=== PATIENT | male | born 1980 | race African-American/Black ===

== ENCOUNTER 2017-06-26 20:56 | Observation (INO) | payer SELFPAY ==
[~2017-06-26] VITALS: Ht 167.6 cm; Wt 70.0 kg
[2017-06-26 21:02] VITALS: BP 117/59; PULSE 91; RESP 18; TEMP 98.5; O2SAT 97
[2017-06-26 21:10] VITALS: RESP 18; O2SAT 97
--- NOTE | 2017-06-26 21:11 | PD ---
HPI Chief Complaint: Pain: Acute or Chronic Time Seen by Provider: 21:06 Travel History International Travel<30 days: No Contact w/Intl Traveler<30days: No Traveled to known affect area: No History of Present Illness HPI 36-year-old male with history of IV drug use, crack cocaine use, multiple substance abuse, states that he had overdosed about 2 weeks ago and had been given medication for overdose but refused to come to the ER, states that since then he has been having chest pains which are right sided going down his right arm, but also radiates to the rest of his chest. He states is currently a 10 out of 10 and is intermittent in nature. He states it gets worse when he lays down. He denies any shortness of breath or any other issues. Modifying Factors: Worse with laying down Associated Signs & Symptoms: Intermittent chest pains Risk Factors: Crack use PFSH Past Medical History Hx Anticoagulant Therapy: No Asthma: Yes (WHEEZING) Blood Disorders: No Bipolar Disorder: Yes Anxiety: Yes Depression: Yes Cancer: No Cardiovascular Problems: No Chemotherapy: No Cerebrovascular Accident: No Diabetes: No Diminished Hearing: No Endocrine: No Gastrointestinal Disorders: No Genitourinary: No Immune Disorder: No Implanted Vascular Access Dvce: No Musculoskeletal: Yes (BROKEN JAW) Neurologic: No Psychiatric: Yes (SUICIDAL ATTEMPTS) Reproductive: No Respiratory: No Influenza Vaccination: No Past Surgical History Other Surgery: No Social History Alcohol Use: No (DENIES) Tobacco Use: Yes (1 PPD) Substance Use: Yes (CRACK) Allergies-Medications (Allergen,Severity, Reaction): Coded Allergies: *MDRO Multi-Drug Resistant Organism (Verified Adverse Reaction, Unknown, ) MRSA chest wound 06/02/15. MRSA PCR Positive 08/21/15. Reported Meds & Prescriptions Reported Meds & Active Scripts Active No Active Prescriptions or Reported Medications Review of Systems Except as stated in HPI: all other systems reviewed are Neg Physical Exam Narrative GENERAL: Well-developed middle age male patient who is currently in moderate distress at awake and oriented 3. SKIN: Focused skin assessment warm/diaphoretic. HEAD: Atraumatic. Normocephalic. EYES: Pupils equal and round. No scleral icterus. No injection or drainage. ENT: No nasal bleeding or discharge. Mucous membranes pink and moist. NECK: Trachea midline. No JVD. CARDIOVASCULAR: Regular rate and rhythm. No murmur appreciated. Pulses are present and equal bilaterally. RESPIRATORY: No accessory muscle use. Clear to auscultation. Breath sounds equal bilaterally. GASTROINTESTINAL: Abdomen soft, non-tender, nondistended. Hepatic and splenic margins not palpable. MUSCULOSKELETAL: No obvious deformities. No clubbing. No cyanosis. No edema. NEUROLOGICAL: Awake and alert. No obvious cranial nerve deficits. Motor grossly within normal limits. Normal speech. PSYCHIATRIC: Appropriate mood and affect; insight and judgment normal. Data Data Last Documented VS Vital Signs Date Time Temp Pulse Resp B/P Pulse Ox O2 Delivery O2 Flow Rate FiO2 06/26/17 21:16 84 18 115/57 98 Room Air 104/55 06/26/17 21:02 98.5 Orders Electrocardiogram (06/26/17 21:06) Ckmb (Isoenzyme) Profile (06/26/17 21:06) Complete Blood Count With Diff (06/26/17 21:06) Comprehensive Metabolic Panel (06/26/17 21:06) Magnesium (Mg) (06/26/17 21:06) Prothrombin Time / Inr (Pt) (06/26/17 21:06) Act Partial Throm Time (Ptt) (06/26/17 21:06) Troponin I (06/26/17 21:06) Chest, Single Ap (06/26/17 21:06) Ecg Monitoring (06/26/17 21:06) Bilateral Bp Monitoring (06/26/17 21:06) Iv Access Insert/Monitor (06/26/17 21:06) Oximetry (06/26/17 21:06) Oxygen Administration (06/26/17 21:06) Sodium Chloride 0.9% Flush (Ns Flush) (06/26/17 21:15) CKMB (06/26/17 21:10) CKMB% (06/26/17 21:10) Activity Bed Rest With Brp (06/26/17 22:31) Vital Signs (Adult) Q4H (06/26/17 22:31) Cardiac Rhythm .As Directed (06/26/17 22:31) Notify Dr: Other .PRN (06/26/17 22:31) Notify DrAundrea Parameters (06/26/17 22:31) Resp Oxygen Nasal Cannula (06/26/17 ) Ckmb (Isoenzyme) Profile (06/26/17 22:31) Ckmb (Isoenzyme) Profile (06/27/17 01:31) Troponin I (06/26/17 22:31) Troponin I (06/27/17 01:31) Electrocardiogram (06/26/17 22:31) Electrocardiogram (06/27/17 01:31) ^ Obtain (06/26/17 22:31) Sodium Chloride 0.9% Flush (Ns Flush) (06/26/17 22:45) Sodium Chloride 0.9% Flush (Ns Flush) (06/27/17 09:00) Aspirin (Aspirin) (06/27/17 09:00) Dust Puller / Telemetry LEEANN.Q8H (06/26/17 22:31) Admit Order (Ed Use Only) (06/26/17 22:31) Labs Laboratory Tests Test 06/26/17 21:10 White Blood Count 7.4 TH/MM3 Red Blood Count 4.66 MIL/MM3 Hemoglobin 13.4 GM/DL Hematocrit 39.5 % Mean Corpuscular Volume 84.7 FL Mean Corpuscular Hemoglobin 28.8 PG Mean Corpuscular Hemoglobin 34.0 % Concent Red Cell Distribution Width 13.8 % Platelet Count 292 TH/MM3 Mean Platelet Volume 7.5 FL Neutrophils (%) (Auto) 45.5 % Lymphocytes (%) (Auto) 36.3 % Monocytes (%) (Auto) 13.6 % Eosinophils (%) (Auto) 4.1 % Basophils (%) (Auto) 0.5 % Neutrophils # (Auto) 3.4 TH/MM3 Lymphocytes # (Auto) 2.7 TH/MM3 Monocytes # (Auto) 1.0 TH/MM3 Eosinophils # (Auto) 0.3 TH/MM3 Basophils # (Auto) 0.0 TH/MM3 CBC Comment DIFF FINAL Differential Comment Prothrombin Time 11.0 SEC Prothromb Time International 1.0 RATIO Ratio Activated Partial 24.5 SEC Thromboplast Time Sodium Level 141 MEQ/L Potassium Level 3.4 MEQ/L Chloride Level 107 MEQ/L Carbon Dioxide Level 24.2 MEQ/L Anion Gap 10 MEQ/L Blood Urea Nitrogen 31 MG/DL Creatinine 1.35 MG/DL Estimat Glomerular Filtration 72 ML/MIN Rate Random Glucose 175 MG/DL Calcium Level 8.2 MG/DL Magnesium Level 2.1 MG/DL Total Bilirubin 0.2 MG/DL Aspartate Amino Transf 12 U/L (AST/SGOT) Alanine Aminotransferase 17 U/L (ALT/SGPT) Alkaline Phosphatase 72 U/L Total Creatine Kinase 110 U/L Creatine Kinase MB 1.0 NG/ML Troponin I LESS THAN 0.02 NG/ML Total Protein 6.4 GM/DL Albumin 3.5 GM/DL MDM Medical Decision Making Medical Screen Exam Complete: Yes Emergency Medical Condition: Yes Medical Record Reviewed: Yes Interpretation(s) EKG shows normal sinus rhythm at a rate of 90 bpm with no signs of acute ST-T changes. Laboratory Tests Test 06/26/17 21:10 Monocytes (%) (Auto) 13.6 % (0.0-8.0) Eosinophils (%) (Auto) 4.1 % (0.0-4.0) Monocytes # (Auto) 1.0 TH/MM3 (0-0.9) Potassium Level 3.4 MEQ/L (3.5-5.1) Blood Urea Nitrogen 31 MG/DL (7-18) Creatinine 1.35 MG/DL (0.60-1.30) Estimat Glomerular Filtration 72 ML/MIN (>89) Rate Random Glucose 175 MG/DL (74-106) Calcium Level 8.2 MG/DL (8.5-10.1) Aspartate Amino Transf 12 U/L (15-37) (AST/SGOT) Troponin I LESS THAN 0.02 NG/ML (0.02-0.05) Last 24 hours Impressions Chest X-Ray 06/26/17 2106 Signed Impressions: Service Date/Time: Monday, June 26, 2017 21:10 - CONCLUSION: No acute disease. Pierre Green MD Differential Diagnosis Intermittent chest painsdysrhythmias versus vasospasm/cocaine related versus ACS versus anxiety attack Narrative Course Lab work and EKG did not show any signs of acute processes. At this point, I plan would be to admit the patient to chest pain center for further evaluation for chest pains. Diagnosis Primary Impression: Atypical chest pain Admitting Information Admitting Physician Requests: Admit Scripts No Active Prescriptions or Reported Meds Leo Alonzo MD Jun 26, 2017 21:11
[2017-06-26] MEDS ORDERED: SODIUM CHLORIDE 0.9% FLUSH 10 ML FLUSH IVF PRN (21:15)
[2017-06-26 21:16] VITALS: BP_SYST 104; BP_SYST 115; BP_DIAS 55; BP_DIAS 57; PULSE 84; RESP 18; O2SAT 98
[2017-06-26 21:53] LABS: AUTOMATED NEUTROPHIL # 3.4 TH/MM3 (1.8-7.7); BASOPHIL % 0.5 % (0.0-2.0); EOSINOPHIL # 0.3 TH/MM3 (0-0.4); EOSINOPHIL % 4.1 % (0.0-4.0); HEMATOCRIT 39.5 % (39.0-51.0); HEMO FLAGS DIFF FINAL; LYMPH % 36.3 % (9.0-44.0); LYMPHOCYTE # 2.7 TH/MM3 (1.0-4.8); MEAN CELL VOLUME 84.7 FL (80.0-100.0); MEAN CORPUSCULAR HEMOGLOBIN 28.8 PG (27.0-34.0); MONO % 13.6 % (0.0-8.0); NEUT % 45.5 % (16.0-70.0); PLATELET COUNT 292 TH/MM3 (150-450); RED BLOOD COUNT 4.66 MIL/MM3 (4.50-5.90); RED CELL DISTRIBUTION WIDTH 13.8 % (11.6-17.2); WHITE BLOOD COUNT 7.4 TH/MM3 (4.0-11.0)
[2017-06-26 21:59] LABS: APTT (PATIENT) 24.5 SEC (24.3-30.1)
--- NOTE | 2017-06-26 22:02 | RADRPT ---
EXAM DATE/TIME: 06/26/2017 21:10 [facility] COMPARISON: CHEST SINGLE AP, August 19, 2015, 11:06. INDICATIONS : Chest pain. MEDICAL HISTORY : Asthma. SURGICAL HISTORY : Jaw surgery. ENCOUNTER: Initial ACUITY: 1 day PAIN SCORE: 10/10 LOCATION: Bilateral chest FINDINGS: A single view of the chest demonstrates the lungs to be symmetrically aerated without evidence of mas s, infiltrate or effusion. The cardiomediastinal contours are unremarkable. Osseous structures are intact. CONCLUSION: No acute disease. Pierre Green MD on June 26, 2017 at 22:00 Board Certified Radiologist. This report was verified electronically.
[2017-06-26 22:08] LABS: ANION GAP 10 MEQ/L (5-15); AST (GOT) 12 U/L (15-37); BICARBONATE 24.2 MEQ/L (21.0-32.0); BLOOD UREA NITROGEN 31 MG/DL (7-18); CHLORIDE 107 MEQ/L (98-107); GLOMERULAR FILTRATION RATE 72 ML/MIN (>89); MAGNESIUM 2.1 MG/DL (1.5-2.5); POTASSIUM 3.4 MEQ/L (3.5-5.1); SODIUM (NA) 141 MEQ/L (136-145)
[2017-06-26 22:09] LABS: ALT (GPT) 17 U/L (12-78)
[2017-06-26 22:13] LABS: ALKALINE PHOSPHATASE 72 U/L (45-117); CREATINE KINASE 110 U/L (39-308); TOTAL BILIRUBIN ADULT 0.2 MG/DL (0.2-1.0)
[2017-06-26] MEDS ORDERED: SODIUM CHLORID 0.9% 500 ML INJ 500 ML IV ONE (22:45)
[2017-06-26] MEDS ORDERED: SODIUM CHLORIDE 0.9% FLUSH 10 ML FLUSH IV FLUSH PRN (22:45)
[2017-06-26] MEDS ORDERED: IOHEXOL 350 MG/ML 10 ML VIAL (for RAD DIAG) IV ONE (23:30)
[2017-06-26 23:41] VITALS: O2SAT 95
--- NOTE | 2017-06-26 23:41 | RADRPT ---
EXAM DATE/TIME: 06/26/2017 22:44 [facility] COMPARISON: No previous studies available for comparison. INDICATIONS : Chest pain. IV CONTRAST: 100 cc Omnipaque 350 (iohexol) IV RADIATION DOSE: 19.47 CTDIvol (mGy) MEDICAL HISTORY : None SURGICAL HISTORY : None. ENCOUNTER: Initial ACUITY: 1 day PAIN SCALE: 8/10 LOCATION: chest TECHNIQUE: Volumetric scanning was performed using a multi-row detector CT scanner. The data was post processed with a variety of visualization algorithms including full volume maximum intensity projection, multi -planar sliding thin slab reformation, curved planar reformation, and surface rendering techniques. Using automated exposure control and adjustment of the mA and/or kV according to patient size, radiat ion dose was kept as low as reasonably achievable to obtain optimal diagnostic quality images. DICOM format image data is available electronically for review and comparison. FINDINGS: LUNGS: There is no consolidation or pneumothorax. No concerning pulmonary nodule is visualized. No pleural fluid is present. MEDIASTINUM: No abnormally enlarged lymph nodes by CT criteria. No axillary or hilar abnormalities are identified. ABDOMEN: The liver and spleen are free of focal defects. The gallbladder and pancreas demonstrate no abnormali ty. The adrenal glands are normal. The kidneys demonstrate no evidence of solid renal mass or hydrone phrosis. No free fluid or abdominal masses are identified. No para-aortic adenopathy is seen. PELVIS: No evidence of free fluid or pelvic mass. No abnormally enlarged inguinal or retroperitoneal lymph no chester are present. The bladder is unremarkable. THORACIC AORTA: The thoracic aortic root is normal with normal branching of the great vessels. There is no evidence of aneurysm or dissection. ABDOMINAL AORTA: The aorta is normal in caliber without aneurysm or dissection. The renal arteries are patent bilater ally. The proximal celiac and superior mesenteric arteries are patent and normal in diameter. PELVIC VESSELS: The internal iliac and external iliac vessels are patent without aneurysm or stenosis. CONCLUSION: Normal examination. Gabino Hogan MD on June 26, 2017 at 23:38 Board Certified Radiologist. This report was verified electronically.
[2017-06-27] VITALS (9 sets, daily range): BP systolic 112–134; BP diastolic 57–78; PULSE 51–88; RESP 18–20; TEMP 96.8–98; O2SAT 95–97
[2017-06-27 01:47] LABS: CREATINE KINASE 102 U/L (39-308)
[2017-06-27 02:00] LABS: CKMB 1.2 NG/ML (0.5-3.6)
[2017-06-27 04:51] LABS: CREATINE KINASE 99 U/L (39-308)
[2017-06-27] MEDS ORDERED: ASPIRIN 325 MG TAB PO SCH (09:00)
[2017-06-27] MEDS ORDERED: SODIUM CHLORIDE 0.9% FLUSH 10 ML FLUSH IV FLUSH SCH (09:00)
[2017-06-27] MEDS ORDERED: NITROGLYCERIN 0.4 MG SL 25 TABS/BTL SL PRN (12:15)
[2017-06-27] MEDS ORDERED: ACETAMINOPHEN 500 MG CPLT PO PRN (12:15)
[2017-06-27] MEDS ORDERED: ONDANSETRON HCL 4 MG/2 ML VIAL IV PRN (12:15)
--- NOTE | 2017-06-27 13:47 | HHI.HP ---
HPI Primary Care Physician No Primary Care Physician Chief Complaint Right arm pain History of Present Illness 36-year-old male with history of polysubstance abuse, IV drug use, and cocaine use presents to emergency room for further evaluation of right arm and right sided chest pain. Endorses 3 weeks ago he overdosed stating EMS "came to my house and gave me a shot in my chest." Refused transportation to hospital at that time. Since this time endorses right shoulder, right upper arm, and right upper chest been "extremely sore." Characterized as intermittent squeezing and muscle spasms. No change in ROM, no numbness, weakness, or tingling of extremity. Hurts to cough and take a deep breath. No sputum production. Continues to smoke and endorses occasional wheeze. No associated symptoms of nausea, vomiting, diaphoresis, or shortness of breath. States he continues to use drugs including cocaine to relieve right arm pain. Review of Systems General: No fatigue,weakness, fever, chills, or recent illness. Recent overdose 3 weeks ago, refused EMS transport for further evaluation. Endorses current cocaine use. HEENT: No RIGGINS, no dysphasia CV: As stated above. No CP, pressure, palpitations, intermittent leg pain, or dizziness RESP: History of asthma., No sputum production offing. Endorses intermittent wheezing, continues to smoke. GI: No nausea, vomiting, bowel changes, diarrhea, constipation, pain. Reports 30 pound weight loss over the last 3 months he relates to frequent drug use. EXT: No lower leg edema, no paraesthesias MS: As stated above. No change in ROM. NEURO: No difficulty with balance, motor/sensory deficits PSYCH: No anxiety, depression, or suicidal ideation. SKIN: No rashes, no concerning lesions Past Family Social History Allergies: Coded Allergies: *MDRO Multi-Drug Resistant Organism (Verified Adverse Reaction, Unknown, ) MRSA chest wound 06/02/15. MRSA PCR Positive 08/21/15. Past Medical History Depression, IV drug user, cocaine abuse, suicide attempt, anxiety, depression, and Past Surgical History None Reported Medications Reported Meds & Active Scripts Active No Active Prescriptions or Reported Medications Active Ordered Medications Current Medications Medications (Trade) Dose Ordered Sig/Yenni Route Start Time Stop Time Status Last Admin (NS Flush) 2 ml UNSCH PRN IVF 06/26/17 21:15 (NS Flush) 2 ml UNSCH PRN IV FLUSH 06/26/17 22:45 (NS Flush) 2 ml BID IV FLUSH 06/27/17 09:00 06/27/17 08:16 (Aspirin) 325 mg DAILY PO 06/27/17 09:00 06/27/17 08:16 (Tylenol) 500 mg Q4H PRN PO 06/27/17 12:15 (Zofran Inj) 4 mg Q6H PRN IV 06/27/17 12:15 (Nitrostat Sl) 0.4 mg Q5M PRN SL 06/27/17 12:15 Family History Noncontributory for early onset cardiovascular disease Social History No known diabetes, hypertension, hyperlipidemia, or coronary artery disease. Endorses current crack cocaine use. Smokes 1 pack daily. Past cardiac testing None Physical Exam Vital Signs Vital Signs Date Time Temp Pulse Resp B/P Pulse Ox O2 Delivery O2 Flow Rate FiO2 06/27/17 12:44 98.0 58 18 119/78 95 06/27/17 11:50 51 06/27/17 09:17 52 06/27/17 08:04 96.8 58 20 134/78 96 06/27/17 04:30 62 06/27/17 03:13 97.7 64 18 112/68 96 06/27/17 00:49 85 18 113/57 97 Room Air 06/26/17 23:41 95 06/26/17 21:16 84 18 115/57 98 Room Air 104/55 06/26/17 21:10 97 Room Air 06/26/17 21:10 18 97 Room Air 06/26/17 21:06 88 18 06/26/17 21:02 98.5 91 18 117/59 97 Physical Exam GENERAL: Alert WN, WD, NAD, [place]ian [place]ian male who appears older than stated age HEAD: NC, AT NECK: Supple, no masses, trachea midline CV: RRR, without murmur, rub, gallop, no JVD, S1-S2 no S3-S4. No carotid bruits. RESP: Clear lungs throughout bilateral, no crackles, wheeze, rhonchi, symmetrical chest rise, nonlabored, able to speak in full sentences ABD: Soft, NT, ND, no masses, positive bowel tones EXT: Pulses +24, no dependent edema MS: Normal tone 4 extremities, right shoulder tender with passive range of motion external rotation, right arm/shoulder nontender with palpation, no obvious deformities, full range of motion NEURO: CN II through CN XII grossly intact, motor strength 5/5, gait WNL PSYCH: A+O 3, appropriate speech, appropriate mood and affect, insight and judgment SKIN: Normal turgor, normal texture Laboratory Laboratory Tests Test 06/26/17 06/27/17 06/27/17 21:10 00:34 03:38 White Blood Count 7.4 Red Blood Count 4.66 Hemoglobin 13.4 Hematocrit 39.5 Mean Corpuscular Volume 84.7 Mean Corpuscular Hemoglobin 28.8 Mean Corpuscular Hemoglobin 34.0 Concent Red Cell Distribution Width 13.8 Platelet Count 292 Mean Platelet Volume 7.5 Neutrophils (%) (Auto) 45.5 Lymphocytes (%) (Auto) 36.3 Monocytes (%) (Auto) 13.6 Eosinophils (%) (Auto) 4.1 Basophils (%) (Auto) 0.5 Neutrophils # (Auto) 3.4 Lymphocytes # (Auto) 2.7 Monocytes # (Auto) 1.0 Eosinophils # (Auto) 0.3 Basophils # (Auto) 0.0 CBC Comment DIFF FINAL Differential Comment Prothrombin Time 11.0 Prothromb Time International 1.0 Ratio Activated Partial 24.5 Thromboplast Time Sodium Level 141 Potassium Level 3.4 Chloride Level 107 Carbon Dioxide Level 24.2 Anion Gap 10 Blood Urea Nitrogen 31 Creatinine 1.35 Estimat Glomerular Filtration 72 Rate Random Glucose 175 Calcium Level 8.2 Magnesium Level 2.1 Total Bilirubin 0.2 Aspartate Amino Transf 12 (AST/SGOT) Alanine Aminotransferase 17 (ALT/SGPT) Alkaline Phosphatase 72 Total Creatine Kinase 110 102 99 Creatine Kinase MB 1.0 1.2 Troponin I LESS THAN 0.02 LESS THAN 0.02 LESS THAN 0.02 Total Protein 6.4 Albumin 3.5 Result Diagram: 06/26/17210906/26/172109 Imaging Last Impressions Chest X-Ray 06/26/172105 Signed Impressions: Service Date/Time: Monday, June 26, 2017 21:10 - CONCLUSION: No acute disease. Pierre Green MD Aorta CTA 06/26/17 0000 Signed Impressions: Service Date/Time: Monday, June 26, 2017 22:44 - CONCLUSION: Normal examination. Gabino Hogan MD Course EKG Normal sinus bradycardic, early repolarization Assessment and Plan Assessment and Plan Right [facility]. Ruled out serial EKGs, cardiac enzymes, and monitor overnight. Seen and evaluated by Dr. Cristopher Solorio. No further cardiac testing at this time. Injury likely occurred during recent drug overdose. Establish with a PCP for follow-up. Information and application for [facility] provided. Toradol 30 mg IV x1. Apply heat to affected area and use [id number] Tylenol. Cocaine use- strongly encouraged him to quit using cocaine. Risk of AL and explained in length. Tobacco use-strongly encouraged him to quit tobacco use Padmini Mustafa Jun 27, 2017 13:46
[2017-06-27] MEDS ORDERED: RESP: ALBUTEROL 2.5 MG/3 ML NEB (PRN) NEB (14:00)
[2017-06-27] MEDS ORDERED: KETOROLAC TROMETHAMINE 30 MG/ML (IVP) VIAL IV PUSH ONE (14:00)
--- NOTE | 2017-06-27 14:39 | HHI.DCPOC ---
Discharge Care Plan Diagnosis: (1) Right shoulder pain (2) Tobacco abuse (3) Substance abuse Goals to Promote Your Health * To prevent worsening of your condition and complications * To maintain your health at the optimal level Directions to Meet Your Goals Take your medications as prescribed Follow your dietary instruction Follow activity as directed Keep your appointments as scheduled Take your immunizations and boosters as scheduled If your symptoms worsen call your PCP, if no PCP go to Urgent Care Center or Emergency Room Smoking is Dangerous to Your Health. Avoid second hand smoke Call the 24-hour hour crisis hotline for domestic abuse at Padmini Mustafa Jun 27, 2017 14:39
--- NOTE | 2017-06-27 16:49 | EKG ---
Date Performed: 06/27/2017 Time Performed: 03:58:40 PTAGE: 36 years EKG: SINUS BRADYCARDIA WITH FIRST DEGREE AV BLOCK EARLY REPOLARIZATION ABNORMAL ECG PREVIOUS TRACING : 06/27/2017 00.35 Since previous tracing, no significant change. DOCTOR: Cristopher Solorio Interpretating Date/Time 06/27/2017 16:48:14
--- NOTE | 2017-06-27 16:49 | EKG ---
Date Performed: 06/27/2017 Time Performed: 00:35:26 PTAGE: 36 years EKG: Sinus rhythm WITH FIRST DEGREE AV BLOCK ST ELEVATION, PROBABLY EARLY REPOLARIZATION ABNORMAL ECG PREVIOUS TRACING : 06/26/2017 21.06 Since previous tracing, the VA interval is more prolonged, otherwise no significant change. DOCTOR: Cristopher Solorio Interpretating Date/Time 06/27/2017 16:47:50
--- NOTE | 2017-06-27 16:49 | EKG ---
Date Performed: 06/26/2017 Time Performed: 21:06:42 PTAGE: 36 years EKG: Early repolarization changes, especially anterolateraly and also seen in lead 2 Since PREVIOUS TRACING , no significant change. PREVIOUS TRACIN09/11/2015 21.58 DOCTOR: Cristopher Solorio Interpretating Date/Time 06/27/2017 16:47:09
== END 2017-06-27 17:17 | disposition home or self-care (01) ==
LOC: NEPE 20:56 → NEDA 22:33 → NEPFCDU 06-27 00:53
PROVIDERS: ADMIT Internal Medicine Interventional Cardiology; ATTEND Internal Medicine Interventional Cardiology
DX: R07.89 Other chest pain (principal); M25.511 Pain in right shoulder; F14.90 Cocaine use, unspecified, uncomplicated; I44.0 Atrioventricular block, first degree; F41.9 Anxiety disorder, unspecified; J45.909 Unspecified asthma, uncomplicated; F32.9 Major depressive disorder, single episode, unspecified; F17.200 Nicotine dependence, unspecified, uncomplicated
CPT/HCPCS: 71010; 71275; 74174; 80053; 82550; 82552; 83735; 84484; 85025; 85610; 85730; 93005; 94664; 99285; G0378; J1885; J7040; J7613; Q9967

== ENCOUNTER 2017-10-13 12:05 | Emergency (ER) | payer SELFPAY ==
[~2017-10-13] VITALS: Ht 167.6 cm; Wt 69.0 kg
[2017-10-13 12:30] VITALS: BP 108/57; PULSE 60; RESP 18; TEMP 97.8; O2SAT 96
[2017-10-13] MEDS ORDERED: SODIUM CHLOR 0.9% 1000 ML INJ 1,000 ML IV ONE (12:33)
[2017-10-13 12:38] VITALS: RESP 18; O2SAT 96
[2017-10-13] MEDS ORDERED: SODIUM CHLORIDE 0.9% FLUSH 10 ML FLUSH IVF PRN (12:45)
[2017-10-13 12:50] LABS: AUTOMATED NEUTROPHIL # 4.3 TH/MM3 (1.8-7.7); BASOPHIL % 0.4 % (0.0-2.0); EOSINOPHIL # 0.1 TH/MM3 (0-0.4); EOSINOPHIL % 1.8 % (0.0-4.0); HEMATOCRIT 42.8 % (39.0-51.0); HEMO FLAGS DIFF FINAL; LYMPH % 31.3 % (9.0-44.0); LYMPHOCYTE # 2.3 TH/MM3 (1.0-4.8); MEAN CELL VOLUME 87.9 FL (80.0-100.0); MONO % 7.9 % (0.0-8.0); NEUT % 58.6 % (16.0-70.0); PLATELET COUNT 256 TH/MM3 (150-450); RED BLOOD COUNT 4.87 MIL/MM3 (4.50-5.90); RED CELL DISTRIBUTION WIDTH 14.8 % (11.6-17.2); WHITE BLOOD COUNT 7.3 TH/MM3 (4.0-11.0)
--- NOTE | 2017-10-13 12:51 | PD ---
HPI Chief Complaint: Altered Mental Status Time Seen by Provider: 12:34 Travel History International Travel<30 days: No Contact w/Intl Traveler<30days: No Traveled to known affect area: No History of Present Illness HPI Patient is a 37-year-old male presenting to the emergency department for evaluation of altered mental status. Patient was found behind a food store, shaking and unconscious. EMS states that he appeared to be sleeping. On their arrival he was combative. He was with several other people who admits to smoking K2. Patient reports nausea, he states he vomited this morning. He denies any abdominal pain currently. He denies any significant past medical history. Patient appears disoriented. PFSH Past Medical History Hx Anticoagulant Therapy: No Asthma: Yes Blood Disorders: No Bipolar Disorder: Yes Anxiety: Yes Depression: Yes Cancer: No Cardiovascular Problems: No Chemotherapy: No Cerebrovascular Accident: No Diabetes: No Diminished Hearing: No Endocrine: No Gastrointestinal Disorders: No Genitourinary: No Immune Disorder: No Implanted Vascular Access Dvce: No Musculoskeletal: Yes (BROKEN JAW) Neurologic: No Psychiatric: Yes (SUICIDAL ATTEMPTS) Reproductive: No Respiratory: No Tetanus Vaccination: > 5 Years Influenza Vaccination: No Past Surgical History Other Surgery: No Social History Alcohol Use: Yes (EVERY DAY) Tobacco Use: Yes (1 PPD) Substance Use: Yes (CRACK IN PAST) Allergies-Medications (Allergen,Severity, Reaction): Coded Allergies: *MDRO Multi-Drug Resistant Organism (Verified Adverse Reaction, Unknown, 10/13/17) MRSA chest wound 06/02/15. MRSA PCR Positive 08/21/15. Reported Meds & Prescriptions Reported Meds & Active Scripts Active No Active Prescriptions or Reported Medications Review of Systems ROS Limitations: Altered Mental Status Except as stated in HPI: all other systems reviewed are Neg HENT: No: Headaches Cardiovascular: No: Chest Pain or Discomfort Respiratory: No: Shortness of Breath Gastrointestinal: Positive: Nausea, Vomiting, No: Abdominal Pain Neurologic: Positive: Change in Mentation Psychiatric: Positive: Substance Abuse Physical Exam Narrative GENERAL: Well-developed, well-nourished, alert male. Appears disoriented. SKIN: Warm and dry. HEAD: Atraumatic. Normocephalic. EYES: Pupils equal and round. No scleral icterus. No injection or drainage. ENT: No nasal bleeding or discharge. Mucous membranes pink and moist. NECK: Trachea midline. No JVD. CARDIOVASCULAR: Regular rate and rhythm. RESPIRATORY: No accessory muscle use. Coarse breath sounds in bases bilaterally. No wheezes noted. GASTROINTESTINAL: Abdomen soft, non-tender, nondistended. Hepatic and splenic margins not palpable. MUSCULOSKELETAL: Extremities without clubbing, cyanosis, or edema. No obvious deformities. NEUROLOGICAL: Awake and alert. No obvious cranial nerve deficits. Motor grossly within normal limits. Five out of 5 muscle strength in the arms and legs. Normal speech. PSYCHIATRIC: Appropriate mood and affect; insight and judgment normal. Data Data Last Documented VS Vital Signs Date Time Temp Pulse Resp B/P (MAP) Pulse Ox O2 Delivery O2 Flow Rate FiO2 10/13/17 12:38 18 96 Room Air 10/13/17 12:34 70 10/13/17 12:30 97.8 108/57 (74) Orders Orders Complete Blood Count With Diff (10/13/17 12:33) Comprehensive Metabolic Panel (10/13/17 12:33) Urinalysis - C+S If Indicated (10/13/17 12:33) Chest, Single Ap (10/13/17 12:33) Ct Brain W/O Iv Contrast(Rout) (10/13/17 12:33) Blood Glucose (10/13/17 12:33) Iv Access Insert/Monitor (10/13/17 12:33) Ecg Monitoring (10/13/17 12:33) Oximetry (10/13/17 12:33) Sodium Chloride 0.9% Flush (Ns Flush) (10/13/17 12:45) Sodium Chlor 0.9% 1000 Ml Inj (Ns 1000 M (10/13/17 12:33) Drug Screen, Random Urine (10/13/17 12:33) Albuterol-Ipratropium Neb (Duoneb Neb) (10/13/17 13:15) Labs Laboratory Tests Test 10/13/17 12:40 White Blood Count 7.3 TH/MM3 Red Blood Count 4.87 MIL/MM3 Hemoglobin 14.1 GM/DL Hematocrit 42.8 % Mean Corpuscular Volume 87.9 FL Mean Corpuscular Hemoglobin 29.0 PG Mean Corpuscular Hemoglobin Concent 33.0 % Red Cell Distribution Width 14.8 % Platelet Count 256 TH/MM3 Mean Platelet Volume 7.1 FL Neutrophils (%) (Auto) 58.6 % Lymphocytes (%) (Auto) 31.3 % Monocytes (%) (Auto) 7.9 % Eosinophils (%) (Auto) 1.8 % Basophils (%) (Auto) 0.4 % Neutrophils # (Auto) 4.3 TH/MM3 Lymphocytes # (Auto) 2.3 TH/MM3 Monocytes # (Auto) 0.6 TH/MM3 Eosinophils # (Auto) 0.1 TH/MM3 Basophils # (Auto) 0.0 TH/MM3 CBC Comment DIFF FINAL Differential Comment Blood Urea Nitrogen 15 MG/DL Creatinine 1.00 MG/DL Random Glucose 99 MG/DL Total Protein 6.5 GM/DL Albumin 3.6 GM/DL Calcium Level 8.4 MG/DL Alkaline Phosphatase 89 U/L Aspartate Amino Transf (AST/SGOT) 38 U/L Alanine Aminotransferase (ALT/SGPT) 138 U/L Total Bilirubin 0.4 MG/DL Sodium Level 142 MEQ/L Potassium Level 3.8 MEQ/L Chloride Level 107 MEQ/L Carbon Dioxide Level 26.9 MEQ/L Anion Gap 8 MEQ/L Estimat Glomerular Filtration Rate 101 ML/MIN MDM Medical Decision Making Medical Screen Exam Complete: Yes Emergency Medical Condition: Yes Interpretation(s) Vital Signs Date Time Temp Pulse Resp B/P (MAP) Pulse Ox O2 Delivery O2 Flow Rate FiO2 10/13/17 12:38 18 96 Room Air 10/13/17 12:34 70 18 96 Room Air 10/13/17 12:30 97.8 60 18 108/57 (74 96 Differential Diagnosis Substance abuse versus metabolic abnormality versus overdose versus other Narrative Course Patient is a 37-year-old male who was brought to the emergency department via EMS for evaluation of altered mental status secondary to smoking K2. On arrival patient was disoriented, labs and imaging ordered and pending. Patient' s vital signs are stable. IV access established, patient placed on ekg monitor tech and continuous pulse oximetry. Patient wanted to leave the emergency department AGAINST MEDICAL ADVICE. He was reevaluated, he was alert, ambulatory, his gait was steady. Patient Jose Miguel Lyle has decided to leave the hospital against medical advice. This patient has the capacity to refuse care and understands the risks of leaving, including permanent disability and/or , and has had an opportunity to ask questions about his condition. The patient has been informed that he may return for care at any time, and follow up has been arranged/ advised. Diagnosis Primary Impression: Left against medical advice Scripts No Active Prescriptions or Reported Meds Valerie West Oct 13, 2017 12:51
--- NOTE | 2017-10-13 13:04 | PD ---
Physical Exam Date Seen by Provider: Oct 13, 2017 Time Seen by Provider: 13:02 Narrative I, Dr. Alonzo, have reviewed the advance practice practitioner's documentation and am in agreement, met with the patient face to face, made the diagnosis, and the medical decision making was done by me. *My assessment and Findings: Patient seen and evaluated with PA, please see PA note for further details. Patient was initially fairly disoriented, but on reevaluation at 1 PM, he is awake, oriented, admits to taking K2. He denies any coingestions. He does not have any apparent injuries and vital signs are stable in the ER. Planning to release the patient after brief observation period in the ER until completely sober. Patient was observed in the ER, and was awake, alert, oriented 3, but did not want to wait for his radiological studies to come back, wide to leave. At this point, he left against my advice. Data Data Last Documented VS Vital Signs Date Time Temp Pulse Resp B/P (MAP) Pulse Ox O2 Delivery O2 Flow Rate FiO2 10/13/17 12:38 18 96 Room Air 10/13/17 12:34 70 10/13/17 12:30 97.8 108/57 (74) Orders Orders Complete Blood Count With Diff (10/13/17 12:33) Comprehensive Metabolic Panel (10/13/17 12:33) Urinalysis - C+S If Indicated (10/13/17 12:33) Chest, Single Ap (10/13/17 12:33) Ct Brain W/O Iv Contrast(Rout) (10/13/17 12:33) Blood Glucose (10/13/17 12:33) Iv Access Insert/Monitor (10/13/17 12:33) Ecg Monitoring (10/13/17 12:33) Oximetry (10/13/17 12:33) Sodium Chloride 0.9% Flush (Ns Flush) (10/13/17 12:45) Sodium Chlor 0.9% 1000 Ml Inj (Ns 1000 M (10/13/17 12:33) Drug Screen, Random Urine (10/13/17 12:33) Albuterol-Ipratropium Neb (Duoneb Neb) (10/13/17 13:15) Labs Laboratory Tests Test 10/13/17 12:40 White Blood Count 7.3 TH/MM3 Red Blood Count 4.87 MIL/MM3 Hemoglobin 14.1 GM/DL Hematocrit 42.8 % Mean Corpuscular Volume 87.9 FL Mean Corpuscular Hemoglobin 29.0 PG Mean Corpuscular Hemoglobin Concent 33.0 % Red Cell Distribution Width 14.8 % Platelet Count 256 TH/MM3 Mean Platelet Volume 7.1 FL Neutrophils (%) (Auto) 58.6 % Lymphocytes (%) (Auto) 31.3 % Monocytes (%) (Auto) 7.9 % Eosinophils (%) (Auto) 1.8 % Basophils (%) (Auto) 0.4 % Neutrophils # (Auto) 4.3 TH/MM3 Lymphocytes # (Auto) 2.3 TH/MM3 Monocytes # (Auto) 0.6 TH/MM3 Eosinophils # (Auto) 0.1 TH/MM3 Basophils # (Auto) 0.0 TH/MM3 CBC Comment DIFF FINAL Differential Comment Blood Urea Nitrogen 15 MG/DL Creatinine 1.00 MG/DL Random Glucose 99 MG/DL Total Protein 6.5 GM/DL Albumin 3.6 GM/DL Calcium Level 8.4 MG/DL Alkaline Phosphatase 89 U/L Aspartate Amino Transf (AST/SGOT) 38 U/L Alanine Aminotransferase (ALT/SGPT) 138 U/L Total Bilirubin 0.4 MG/DL Sodium Level 142 MEQ/L Potassium Level 3.8 MEQ/L Chloride Level 107 MEQ/L Carbon Dioxide Level 26.9 MEQ/L Anion Gap 8 MEQ/L Estimat Glomerular Filtration Rate 101 ML/MIN [facility] Medical Record Reviewed: Yes Supervised Visit with ROBERT: Yes Diagnosis Primary Impression: Substance abuse Scripts No Active Prescriptions or Reported Meds Disposition: 07 AGAINST MEDICAL ADVICE Condition: Stable Leo Alonzo MD Oct 13, 2017 13:04
[2017-10-13 13:06] LABS: ANION GAP 8 MEQ/L (5-15); AST (GOT) 38 U/L (15-37); BICARBONATE 26.9 MEQ/L (21.0-32.0); BLOOD UREA NITROGEN 15 MG/DL (7-18); CHLORIDE 107 MEQ/L (98-107); GLOMERULAR FILTRATION RATE 101 ML/MIN (>89); POTASSIUM 3.8 MEQ/L (3.5-5.1); SODIUM (NA) 142 MEQ/L (136-145)
[2017-10-13 13:07] LABS: ALT (GPT) 138 U/L (12-78)
[2017-10-13 13:10] LABS: ALKALINE PHOSPHATASE 89 U/L (45-117); TOTAL BILIRUBIN ADULT 0.4 MG/DL (0.2-1.0)
[2017-10-13] MEDS: RESP: ALBUTEROL 2.5 MG/IPRATROPIUM 0.5 MG NEB (SCH) INH (13:23)
--- NOTE | 2017-10-13 14:01 | RADRPT ---
EXAM DATE/TIME: 10/13/2017 13:17 [facility] COMPARISON: CHEST SINGLE AP, June 26, 2017, 21:10. INDICATIONS : Syncope. MEDICAL HISTORY : None. SURGICAL HISTORY : None. ENCOUNTER: Initial ACUITY: 1 day PAIN SCORE: 0/10 LOCATION: none FINDINGS: A single view of the chest demonstrates the lungs to be symmetrically aerated without evidence of mas s, infiltrate or effusion. The cardiomediastinal contours are unremarkable. Osseous structures are intact. CONCLUSION: Normal examination. Hari Benitez Jr., MD on October 13, 2017 at 13:17 Board Certified Radiologist. This report was verified electronically.
--- NOTE | 2017-10-13 14:05 | RADRPT ---
EXAM DATE/TIME: 10/13/2017 13:13 [facility] COMPARISON: CT BRAIN W/O CONTRAST, February 15, 2016, 13:59. INDICATIONS : Found unresponsive, now alert. RADIATION DOSE: 36.73 CTDIvol (mGy) MEDICAL HISTORY : None SURGICAL HISTORY : None. ENCOUNTER: Initial ACUITY: 1 day PAIN SCALE: 0/10 LOCATION: cranial TECHNIQUE: Multiple contiguous axial images were obtained of the head. Using automated exposure control and adj ustment of the mA and/or kV according to patient size, radiation dose was kept as low as reasonably a chievable to obtain optimal diagnostic quality images. DICOM format image data is available electro nically for review and comparison. FINDINGS: CEREBRUM: The ventricles are normal for age. No evidence of midline shift, mass lesion, hemorrhage or acute in farction. No extra-axial fluid collections are seen. POSTERIOR FOSSA: The cerebellum and brainstem are intact. The 4th ventricle is midline. The cerebellopontine angle i s unremarkable. EXTRACRANIAL: The visualized portion of the orbits is intact. SKULL: The calvaria is intact. No evidence of skull fracture. CONCLUSION: Normal examination. Hari Benitez Jr., MD on October 13, 2017 at 14:02 Board Certified Radiologist. This report was verified electronically.
== END 2017-10-13 13:53 | disposition left against medical advice (07) ==
LOC: NEPE 12:05
DX: T40.7X1A Poisoning by cannabis (derivatives), accidental (unintentional), initial encounter (principal); F19.10 Other psychoactive substance abuse, uncomplicated; R41.82 Altered mental status, unspecified; R11.2 Nausea with vomiting, unspecified; J45.909 Unspecified asthma, uncomplicated; F31.9 Bipolar disorder, unspecified; F41.9 Anxiety disorder, unspecified; F17.200 Nicotine dependence, unspecified, uncomplicated
CPT/HCPCS: 70450; 71010; 80053; 85025; 94640; 94664; 96360; 99285; J7030

== ENCOUNTER 2017-10-20 12:20 | Emergency (ER) | payer OTHER ==
[~2017-10-20] VITALS: Ht 167.6 cm; Wt 70.0 kg
[2017-10-20 12:23] VITALS: BP 105/55; PULSE 66; RESP 16; TEMP 98.3; O2SAT 93
[2017-10-20] MEDS ORDERED: SODIUM CHLOR 0.9% 1000 ML INJ 1,000 ML IV ONE (12:29)
[2017-10-20] MEDS ORDERED: ONDANSETRON HCL 4 MG/2 ML VIAL IV PUSH ONE (12:30)
[2017-10-20] MEDS ORDERED: SODIUM CHLORIDE 0.9% FLUSH 10 ML FLUSH IVF PRN (12:30)
[2017-10-20 12:32] VITALS: O2SAT 93
--- NOTE | 2017-10-20 12:32 | PD ---
HPI Chief Complaint: Alcohol/Drug Intoxication Time Seen by Provider: 12:29 Travel History International Travel<30 days: No Contact w/Intl Traveler<30days: No Traveled to known affect area: No History of Present Illness HPI 37-year-old male with PMH of substance abuse, multiple psychiatric diagnoses presents to the ED via EMS for evaluation after reportedly "falling out" by bystanders. Patient states that he was smoking K2 today. He denies any other illicit substance use or alcohol use today. On arrival the patient is alert and oriented. He answers questions appropriately. He endorses nausea but denies any somatic complaints. He denies hitting his head during the event. Apparently on scene the patient was belligerent with police and arrives in handcuffs. So far has been cooperative in the ED. Handcuffs are removed. PFSH Past Medical History Hx Anticoagulant Therapy: No Asthma: Yes Blood Disorders: No Bipolar Disorder: Yes Anxiety: Yes Depression: Yes Cancer: No Cardiovascular Problems: No Chemotherapy: No Cerebrovascular Accident: No Diabetes: No Diminished Hearing: No Endocrine: No Gastrointestinal Disorders: No Genitourinary: No Immune Disorder: No Implanted Vascular Access Dvce: No Musculoskeletal: Yes (BROKEN JAW) Neurologic: No Psychiatric: Yes (SUICIDAL ATTEMPTS) Reproductive: No Respiratory: No Past Surgical History Other Surgery: No Social History Alcohol Use: Yes (EVERY DAY) Tobacco Use: Yes (1 PPD) Substance Use: Yes (CRACK IN PAST) Allergies-Medications (Allergen,Severity, Reaction): Coded Allergies: *MDRO Multi-Drug Resistant Organism (Verified Adverse Reaction, Unknown, 10/20/17) MRSA chest wound 06/02/15. MRSA PCR Positive 08/21/15. Reported Meds & Prescriptions Reported Meds & Active Scripts Active No Active Prescriptions or Reported Medications Review of Systems Except as stated in HPI: all other systems reviewed are Neg Physical Exam Narrative GENERAL: Well-nourished, well-developed black male in no acute distress. SKIN: Focused skin assessment warm/dry. Tattoos noted HEAD: Normocephalic. EYES: No scleral icterus. Injected bilaterally without drainage. NECK: Supple, trachea midline. No JVD or lymphadenopathy. CARDIOVASCULAR: Regular rate and rhythm without murmurs, gallops, or rubs. RESPIRATORY: Breath sounds coarse and equal bilaterally. No accessory muscle use. GASTROINTESTINAL: Abdomen soft, non-tender, nondistended. Active bowel sounds. MUSCULOSKELETAL: No cyanosis, or edema. BACK: Nontender without obvious deformity. No CVA tenderness. Data Data Last Documented VS Vital Signs Date Time Temp Pulse Resp B/P (MAP) Pulse Ox O2 Delivery O2 Flow Rate FiO2 10/20/17 12:32 93 Room Air 10/20/17 12:23 98.3 66 16 105/55 (72) Orders Orders Complete Blood Count With Diff (10/20/17 12:29) Comprehensive Metabolic Panel (10/20/17 12:29) Iv Access Insert/Monitor (10/20/17 12:29) Ecg Monitoring (10/20/17 12:29) Oximetry (10/20/17 12:29) Sodium Chloride 0.9% Flush (Ns Flush) (10/20/17 12:30) Sodium Chlor 0.9% 1000 Ml Inj (Ns 1000 M (10/20/17 12:29) Alcohol (Ethanol) (10/20/17 12:29) Ondansetron Inj (Zofran Inj) (10/20/17 12:30) Ed Discharge Order (10/20/17 13:05) Labs Laboratory Tests Test 10/20/17 12:30 White Blood Count 8.0 TH/MM3 Red Blood Count 5.01 MIL/MM3 Hemoglobin 14.6 GM/DL Hematocrit 43.9 % Mean Corpuscular Volume 87.6 FL Mean Corpuscular Hemoglobin 29.2 PG Mean Corpuscular Hemoglobin Concent 33.4 % Red Cell Distribution Width 14.5 % Platelet Count 268 TH/MM3 Mean Platelet Volume 7.4 FL Neutrophils (%) (Auto) 56.9 % Lymphocytes (%) (Auto) 32.8 % Monocytes (%) (Auto) 8.8 % Eosinophils (%) (Auto) 1.1 % Basophils (%) (Auto) 0.4 % Neutrophils # (Auto) 4.5 TH/MM3 Lymphocytes # (Auto) 2.6 TH/MM3 Monocytes # (Auto) 0.7 TH/MM3 Eosinophils # (Auto) 0.1 TH/MM3 Basophils # (Auto) 0.0 TH/MM3 CBC Comment DIFF FINAL Differential Comment Blood Urea Nitrogen 22 MG/DL Creatinine 0.85 MG/DL Random Glucose 86 MG/DL Total Protein 6.9 GM/DL Albumin 3.8 GM/DL Calcium Level 8.6 MG/DL Alkaline Phosphatase 88 U/L Aspartate Amino Transf (AST/SGOT) 31 U/L Alanine Aminotransferase (ALT/SGPT) 122 U/L Total Bilirubin 0.5 MG/DL Sodium Level 141 MEQ/L Potassium Level 3.8 MEQ/L Chloride Level 107 MEQ/L Carbon Dioxide Level 26.8 MEQ/L Anion Gap 7 MEQ/L Estimat Glomerular Filtration Rate 122 ML/MIN Ethyl Alcohol Level LESS THAN 3 MG/DL MDM Medical Decision Making Medical Screen Exam Complete: Yes Emergency Medical Condition: Yes Differential Diagnosis Substance abuse versus unintentional overdose versus metabolic derangement versus other Narrative Course 37-year-old male with PMH of substance abuse, multiple psychiatric diagnoses presents to the ED via EMS for evaluation after reportedly "falling out" by bystanders. Patient states that he was smoking K2 today. He denies any other illicit substance use or alcohol use today. On arrival the patient is alert and oriented. He answers questions appropriately. He endorses nausea but denies any somatic complaints. He denies hitting his head during the event. Apparently on scene the patient was belligerent with police and arrives in handcuffs. So far has been cooperative in the ED. Handcuffs are removed. Vitals reviewed. Patient's O2 sats 93% on room air. Breath sounds are coarse bilaterally but the exam is otherwise unremarkable. IV was established. Patient was administered 1 L normal saline and 4 mg Zofran IV. CBC unremarkable. CMP with elevation of the ALT. Alcohol less than 3. While awaiting the results of the blood work the patient states that he does not wish to be treated and would like to leave. The patient is alert and oriented 4. He is definitely capable of making his own decisions. Remaining orders canceled. I explained the risks of leaving without completing the evaluation, up to and including . The patient acknowledged these risks but still chose to leave AGAINST MEDICAL ADVICE Diagnosis Primary Impression: Substance abuse Referrals: [facility] (Out patient) Additional Instructions: Seek outpatient treatment for substance abuse. Scripts No Active Prescriptions or Reported Meds Disposition: 07 AGAINST MEDICAL ADVICE Condition: Stable Emily Connelly Oct 20, 2017 12:32
[2017-10-20 12:49] LABS: AUTOMATED NEUTROPHIL # 4.5 TH/MM3 (1.8-7.7); BASOPHIL % 0.4 % (0.0-2.0); EOSINOPHIL # 0.1 TH/MM3 (0-0.4); EOSINOPHIL % 1.1 % (0.0-4.0); HEMATOCRIT 43.9 % (39.0-51.0); HEMO FLAGS DIFF FINAL; LYMPH % 32.8 % (9.0-44.0); LYMPHOCYTE # 2.6 TH/MM3 (1.0-4.8); MEAN CELL VOLUME 87.6 FL (80.0-100.0); MEAN CORPUSCULAR HEMOGLOBIN 29.2 PG (27.0-34.0); MEAN CORPUSCULAR HGB CONC 33.4 % (32.0-36.0); MONO % 8.8 % (0.0-8.0); NEUT % 56.9 % (16.0-70.0); PLATELET COUNT 268 TH/MM3 (150-450); RED BLOOD COUNT 5.01 MIL/MM3 (4.50-5.90); RED CELL DISTRIBUTION WIDTH 14.5 % (11.6-17.2)
[2017-10-20 13:06] LABS: ANION GAP 7 MEQ/L (5-15); AST (GOT) 31 U/L (15-37); BICARBONATE 26.8 MEQ/L (21.0-32.0); CHLORIDE 107 MEQ/L (98-107); POTASSIUM 3.8 MEQ/L (3.5-5.1); SODIUM (NA) 141 MEQ/L (136-145)
[2017-10-20 13:11] LABS: ALCOHOL LESS THAN 3 MG/DL (0-5)
[2017-10-20 13:14] LABS: ALKALINE PHOSPHATASE 88 U/L (45-117); ALT (GPT) 122 U/L (12-78); BLOOD UREA NITROGEN 22 MG/DL (7-18); GLOMERULAR FILTRATION RATE 122 ML/MIN (>89); TOTAL BILIRUBIN ADULT 0.5 MG/DL (0.2-1.0)
== END 2017-10-20 13:12 | disposition home or self-care (01) ==
LOC: NEPC 12:20
DX: F19.10 Other psychoactive substance abuse, uncomplicated (principal); R11.0 Nausea; J45.909 Unspecified asthma, uncomplicated; F31.9 Bipolar disorder, unspecified; F41.9 Anxiety disorder, unspecified; F17.200 Nicotine dependence, unspecified, uncomplicated
CPT/HCPCS: 80053; 80307; 85025; 96374; 99284; J2405; J7030

== ENCOUNTER 2018-03-12 19:18 | Emergency (ER) | payer SELFPAY | END 2018-03-12 22:54 | disposition left against medical advice (07) | LOC: NED 19:18 | DX: Z53.21 Procedure and treatment not carried out due to patient leaving prior to being seen by health care provider (principal) | CPT/HCPCS: 99281 ==